=== PATIENT | female | born 2000 | race African-American/Black ===

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

== ENCOUNTER 2020-01-26 12:29 | Emergency (ER) | payer MEDICAID ==
[2020-01-26] MEDS ORDERED: KETOROLAC TROMETHAMINE 60 MG/2 ML SDV IM ONE (12:37)
[2020-01-26] MEDS ORDERED: DEXAMETHASONE CONC 1 MG/ML SOLN PO ONE (12:37)
--- NOTE | 2020-01-26 12:40 | ER Document Report ---
HPI - HPI Patient complains to provider of: sore throat Time Seen by Provider: 01/26/20 12:33 Notes: 19-year-old female to the emergency department with complaints of a sore throat that started yesterday. She states it hurts when she swallows. She states that she has had strep throat several times in the past year. She states she has not had a fever. Denies cough. Denies loss of taste. Denies any sick contacts. Denies anybody with known Covid. She denies any chest pain, shortness of breath, neck pain, headache, ear pain, or nasal congestion. - ROS Systems Reviewed and Negative: Yes All other systems reviewed and negative - CONSTITUTIONAL Constitutional: DENIES: Fever, Chills - EENT EENT: REPORTS: Sore Throat. DENIES: Ear Pain, Nasal Drainage-Clear, Nasal Drainage-Purulent, Congestion - NEURO Neurology: DENIES: Headache, Weakness - CARDIOVASCULAR Cardiovascular: DENIES: Chest pain - RESPIRATORY Respiratory: DENIES: Trouble Breathing, Coughing - GASTROINTESTINAL Gastrointestinal: DENIES: Abdominal Pain, Nausea, Patient vomiting, Diarrhea - MUSCULOSKELETAL Musculoskeletal: DENIES: Extremity pain, Back Pain, Neck Pain - DERM Skin Color: Normal Skin Problems: None Past Medical History - General Information source: Patient - Social History Smoking Status: Never Smoker Frequency of alcohol use: None Drug Abuse: None Family History: Reviewed & Not Pertinent Vertical Provider Document - CONSTITUTIONAL Exam Limitations: No Limitations General Appearance: WD/WN, No Apparent Distress - HEENT HEENT: Atraumatic, Normocephalic, PERRLA Notes: Bilateral tonsillar hypertrophy with 1+ symmetric enlargement. There is noted exudates in the tonsils have beefy erythema. There is no Payton's. There is no voice change. There is no evidence for peritonsillar abscess. Uvula is midline and not edematous. Airway is grossly patent. No tender cervical lymphadenopathy. Bilateral TMs are clear. No nasal congestion. - NECK Neck: Normal Inspection, Supple Notes: No nuchal rigidity - RESPIRATORY Respiratory: Breath Sounds Normal, No Respiratory Distress. negative: Rales, Rhonchi, Wheezing - CARDIOVASCULAR Cardiovascular: Regular Rate, Regular Rhythm, No Murmur - GI/ABDOMEN Gastrointestinal: Abdomen Soft, Abdomen Non-Tender, No Organomegaly - NEURO Level of Consciousness: Awake, Alert, Appropriate Motor/Sensory: No Motor Deficit, No Sensory Deficit - DERM Integumentary: Warm, Dry, No Rash Course - Re-evaluation Re-evalutation: 01/26/20 Impression sore throat, tonsillitis. Her rapid strep is negative however exam is little suggestive of otherwise. [place] swab is negative. We did swab her for Covid. She will quarantine for the next several days until she gets her Covid results. Will start azithromycin for tonsillitis. She is to return if any worsening symptoms. Patient agrees with the plan. Discharge - Discharge Clinical Impression: Sore throat, Tonsillitis, Encounter for laboratory testing for COVID-19 virus Condition: Stable Disposition: HOME, SELF-CARE Instructions: Tonsillitis ([facility]) Additional Instructions: Take medicines as prescribed. Please quarantine for one week until you have results of your COVID test. Return if worsening symptoms such as shortness of breath, chest pain, passing out. Push fluids. REst at home. As a person under investigation for COVID-19, [facility], division of public health advises you to adhere to t he following guidance until your test results are reported to you. If your test result is positive, you will receive additional information from your provider and your local health department at that time. Remain at home until you are cleared by the healthcare provider public health authorities. Keep a log of visitors to your home and notify any visitors to your home of your isolation status. If you plan to move to a new address or leave the country, notify the local health department and your County. Call your doctor or seek care if you have an urgent medical need. Before seeking medical care, call ahead to get instructions from the provider before arriving at the medical office, clinic, or hospital. Notify them that you are being tested for the virus that causes COVID-19 so that arrangements can be made, as necessary, to prevent transmission to others in the healthcare setting. Next, notify the local health department and your County. If a medical emergency arises and you need to call 911, informed the first responders that you are being tested for the virus that causes COVID-19. Next, notified the local health department and your County. Prescriptions: Azithromycin 500 mg PO DAILY #5 tablet Naproxen [Naprosyn 250 mg Tablet] 500 mg PO BID #20 tablet Forms: Return to Work Referrals: [facility] [Provider Group] - Follow up in 1 week
[2020-01-26 12:44] VITALS: BP 108/74
== END 2020-01-26 14:00 | disposition home or self-care (01) ==
LOC: ER 12:29
DX: J03.90 Acute tonsillitis, unspecified (principal); Z20.828 Contact with and (suspected) exposure to other viral communicable diseases
CPT/HCPCS: 99284; 96372; 36415; 87070; 87880; 87635; 87077; 86308; J1885; J8540; C9803